=== PATIENT | male | born 1995 | race Asian ===

== ENCOUNTER 2017-08-17 00:38 | Emergency (ER) | payer OTHER ==
[~2017-08-17] VITALS: Ht 167.6 cm; Wt 59.6 kg
[2017-08-17 00:46] VITALS: BP 110/77; PULSE 89; TEMP 36.6; O2SAT 98; Ht 167.6 cm; Wt 59.6 kg
--- NOTE | 2017-08-17 01:04 | EMERGENCY ROOM VISIT NOTE ---
ED Visit Note First contact with patient: 00:53 CHIEF COMPLAINT: Left thumb abrasion HISTORY OF PRESENT ILLNESS: This 21-year-old patient presents to the emergency department family after cutting the left thumb on a piece of dish just prior to arrival. The bleeding has stopped. Denies weakness or numbness of the extremity. patient has full range of motion of the extremity The patient rates the pain as mild and 2/10. The patient denies any other injuries. The patient' s tetanus shot is up to date. REVIEW OF SYSTEMS: A 6 system review of systems was completed with positives and pertinent negatives listed in the HPI. ALLERGIES: None MEDICATIONS: None PMH: None SOCIAL HISTORY: No drug use PHYSICAL EXAM: Vital Signs: Reviewed Nurse's notes, vital signs stable. GENERAL : Pleasant male, in no acute distress, well developed, well nourished. SKIN: There is a 5 mm superficial abrasion to the palmar aspect of the left thumb The edges do not gape apart with traction. There is no foreign material in the wound and it looks clean. There is no bleeding. No deep structures such as tendons, bones, or significant blood vessels are seen in the base of the wound. Extension and flexion of the extremity is full and strong. Full range of motion of the extremity. Capillary refill less than 2 seconds. Normal sensation to light and sharp touch. EMERGENCY DEPARTMENT COURSE: I examined the patient. Hemostasis was achieved. The area was cleaned with sterile saline and dressed with bacitracin ointment and bandage. Patient was counseled on wound care. The patient was discharged home in good condition. Differential diagnosis includes laceration, tendon injury, vascular injury and other etiologies were considered. DIAGNOSIS: Left thumb abrasion DISCHARGE INSTRUCTIONS & TREATMENT: As below Allergies Coded Allergies: No Known Allergies (Unverified , 08/17/17) Vital Signs Date Time Temp Pulse Resp B/P (MAP) Pulse Ox O2 Delivery O2 Flow Rate FiO2 08/17/17 00:46 36.6 89 18 110/77 98 Room Air Departure Information Impression Primary Impression: Abrasion of left thumb Dispostion Home / Self-Care Condition GOOD Forms HOME CARE DOCUMENTATION FORM, IMPORTANT VISIT INFORMATION Patient Instructions [facility], ED Abrasion Additional Instructions Antibiotic ointment and bandage to the areas until healed. Follow up with family doctor or return for any signs of infection (increasing redness, swelling , drainage, or fever). Keep covered when in sun until fully healed then SPF 50 or higher until scar healed.
== END 2017-08-17 01:03 | disposition home or self-care (01) ==
LOC: C.EDB 00:39
DX: S60.312A Abrasion of left thumb, initial encounter (principal); W45.8XXA Other foreign body or object entering through skin, initial encounter